=== PATIENT | male | born 1955 | race African-American/Black ===

== ENCOUNTER 2019-03-20 07:01 | Day surgery (SDC) | payer OTHER ==
[2019-03-20] VITALS (9 sets, daily range): BP systolic 124–152; BP diastolic 67–79
[~2019-03-20] VITALS: Ht 198.1 cm; Wt 131.5 kg
[2019-03-20] MEDS ORDERED: DIOVAN160 MG ORAL (07:32)
[2019-03-20] MEDS ORDERED: ATORVASTATIN CA40 MG ORAL (07:32)
[2019-03-20] MEDS ORDERED: CHLORTHALIDONE25 MG ORAL (07:32)
[2019-03-20] MEDS ORDERED: AMLODIPINE BESY10 MG ORAL (07:32)
--- NOTE | 2019-03-20 07:42 | Pre-Procedure Note/Attestation ---
Pre-Procedure Note/Attestation Complete Prior to Procedure Planned Procedure: not applicable Procedure Narrative: colonoscopy Indications for Procedure Pre-Operative Diagnosis: multiple colon polyps Attestation I attest that I discussed the nature of the procedure; its benefits; risks and complications; and alternatives (and the risks and benefits of such alternatives ), prior to the procedure, with the patient (or the patient's legal b2b outside sales representative). I attest that, if there was a reasonable possibility of needing a blood transfusion, the patient (or the patient's legal b2b outside sales representative) was given the [facility] standardized written summary, pursuant to the Isacc Chandler Blood Safety Act ([place] Health and Safety Code # 1645, as amended). I attest that I re-evaluated the patient just prior to the surgery and that there has been no change in the patient's H&P, except as documented below: Bernard Ku MD Mar 20, 2019 07:42
--- NOTE | 2019-03-20 07:43 | Short Stay Surgery H&P ---
History of Present Illness History of Present Illness Chief Complaint multiple colon polyps HPI Tim Katz is a 63 year old male who was admitted on for Multiple Polyps Patient History Allergies: Coded Allergies: PENICILLINS (Verified Allergy, Mild, 03/20/19) SKIN RASH PAST MEDICAL HISTORY: (1) HTN (hypertension) (2) Hypercholesteremia Medication History Scheduled Amlodipine Besylate* (Amlodipine Besylate*), 10 MG ORAL DAILY, (Reported) Atorvastatin Calcium* (Atorvastatin Calcium*), 40 MG ORAL BEDTIME, (Reported) Chlorthalidone* (Chlorthalidone*), 25 MG ORAL DAILY, (Reported) Valsartan (Diovan), 160 MG ORAL DAILY, (Reported) Review of Systems Cardiovascular: Reports: no symptoms Respiratory: Reports: no symptoms Skeletal: Reports: no symptoms Gastrointestinal: Reports: no symptoms Genitourinary: Reports: no symptoms Neurologic: Reports: no symptoms Endocrine: Reports: no symptoms Hematologic: Reports: no symptoms Physical Exam Vital Signs Last Vital Signs Date Time Temp Pulse Resp B/P (MAP) Pulse Ox O2 Delivery O2 Flow Rate FiO2 03/20/19 07:37 Room Air Skin: normal HENT: normal Heart: normal Lungs: normal Abdomen: normal Extremities: normal Plan Plan of Care colonoscopy Attestation Are the patient's medical conditions optimized for surgery? Attestation Response: yes Bernard Ku MD Mar 20, 2019 07:43
[2019-03-20] MEDS ORDERED: LR 1000ml 1,000 ML IVLG SCH (08:28)
--- NOTE | 2019-03-20 08:28 | Anethesia Preoperative Eval ---
Anesthesia Pre-op PMH/ROS General Date of Evaluation: Mar 20, 2019 Time of Evaluation: 08:26 Anesthesiologist: Tiesha ASA Score: ASA 2 Mallampati Score Class I : Soft palate, uvula, fauces, pillars visible Class II: Soft palate, uvula, fauces visible Class III: Soft palate, base of uvula visible Class IV: Only hard plate visible Mallampati Classification: Class II Surgeon: Kings Diagnosis: Tiesha Surgical Procedure: Colonoscopy Anesthesia History: none Family History: no anesthesia problems Allergies: Coded Allergies: PENICILLINS (Verified Allergy, Mild, 03/20/19) SKIN RASH Medications: see eMAR Patient NPO?: Yes Past Medical History Cardiovascular: Reports: HTN - mild; Denies: CAD, MT, valve dz, arrhythmia, other Pulmonary: Denies: asthma, COPD, INNA, other Gastrointestinal/Genitourinary: Reports: GERD; Denies: CRI, ESRD, other Neurologic/Psychiatric: Reports: dementia Endocrine: Denies: DM, hypothyroidism, steroids, other HEENT: Reports: cataract (L), cataract (R); Denies: glaucoma, [place] (L), [place]TON (R), other Hematology/Immune: Denies: anemia, DVT, bleeding disorder, other Musculoskeletal/Integumentary: Denies: OA, RA, DJD, DDD, edema, other PMH Narrative: as above PSxH Narrative: see H&P Anesthesia Pre-op Phys. Exam Physician Exam Last Vital Signs Date Time Temp Pulse Resp B/P (MAP) Pulse Ox O2 Delivery O2 Flow Rate FiO2 03/20/19 07:51 97.7 83 20 152/76 97 Room Air Constitutional: NAD Neurologic: CN 2-12 intact Cardiovascular: RRR, no M/R/G Respiratory: CTA Gastrointestinal: S/NT/ND Airway Exam Mallampati Score: Class II MO: full ROM: full Teeth: intact Dentures: no upper, no lower Anesthesia Pre-op A/P Risk Assessment & Plan Assessment: ASA 2 Plan: MAC Status Change Before Surgery: No Ernesto Motley MD Mar 20, 2019 08:28
[2019-03-20] MEDS ORDERED: Propofol 200mg/20ml IV ONE (08:30)
[2019-03-20] MEDS ORDERED: LR 1000ml ONE (08:30)
[2019-03-20] MEDS ORDERED: fentaNYL 100 mcg/2 mL IV ONE (08:30)
[2019-03-20] MEDS ORDERED: fentaNYL 100 mcg/2 mL IV PRN (08:30)
--- NOTE | 2019-03-20 09:22 | Endoscopy Procedure Note ---
Endoscopy Procedure Note General Indication for Procedure: screening colon Procedures Performed: colonoscopy Operative Findings/Diagnosis: diverticulosis Specimen: none Pt Tolerated Procedure Well: Yes Estimated Blood Loss: none Anesthesia Anesthesiologist: mira Anesthesia: MAC Inserted Devices Implant(s) used?: No Quality Quality of Bowel Preparation: Good Did scope reach the cecum?: Yes Was there any complications?: No GI Core Measures 50 yrs or older w/o bx or poly: No 10yrs. F/U not recommended: Yes If not recommended, why?: Above average risk 10 yrs. F/U needed: Yes 18 years or older w/prev. colo: No Bernard Ku MD Mar 20, 2019 09:22
--- NOTE | 2019-03-20 09:25 | Immediate Post-Op Evaluation ---
Immediate Post-Op Evalulation Immediate Post-Op Evalulation Procedure: Colonoscopy Date of Evaluation: Mar 20, 2019 Time of Evaluation: 09:24 IV Fluids: 600 Blood Products: none Estimated Blood Loss: none Urinary Output: none Blood Pressure Systolic: 116 Blood Pressure Diastolic: 68 Pulse Rate: 78 Respiratory Rate: 20 O2 Sat by Pulse Oximetry: 98 Temperature (Fahrenheit): 97.6 Pain Score (1-10): 1 Nausea: No Vomiting: No Complications none Patient Status: awake, patent, none Hydration Status: adequate Ernesto Motley MD Mar 20, 2019 09:25
--- NOTE | 2019-03-20 10:18 | 48 Hour Post Anesthesia Eval ---
Post Anesthesia Evaluation Procedure: Colonoscopy Date of Evaluation: Mar 20, 2019 Time of Evaluation: 10:17 Blood Pressure Systolic: 128 0: 74 Pulse Rate: 68 Respiratory Rate: 18 Temperature (Fahrenheit): 97.8 O2 Sat by Pulse Oximetry: 98 Airway: patent Nausea: No Vomiting: No Pain Intensity: 1 Hydration Status: adequate Cardiopulmonary Status: stable Mental Status/LOC: patient returned to baseline Follow-up Care/Observations: n/a Post-Anesthesia Complications: none Follow-up care needed: ready to discharge Ernesto Motley MD Mar 20, 2019 10:18
--- NOTE | 2019-03-20 16:00 | Procedure Note ---
DATE OF PROCEDURE: 03/20/2019 SURGEON: Bernard Ku M.D. PROCEDURE: Colonoscopy. ANESTHESIA: Per Dr. Motley. INSTRUMENT: Olympus adult flexible colonoscope. INDICATION: Screening colonoscopy and history of chronic polyp. REASON FOR PROCEDURE: The procedure, risks, benefits, and possible consequences, including hemorrhage, aspiration, perforation and infection, and alternative treatments, were explained to the patient/legal guardian by Dr. Bernard Ku and the patient/legal guardian understood and accepted these risks. PROCEDURE IN DETAIL: After informed consent was obtained and the patient was adequately sedated. First rectal exam was performed, which was normal. Then, the scope was advanced from rectum into the cecum documented by appendiceal orifice, ileocecal valve, and right upper quadrant palpation. Quality of prep was good. The patient has evidence of diverticulosis in the left colon, moderate. No obvious polyp was seen in this colonoscopy examination. Retroflexion of rectum showed evidence of medium-sized nonbleeding internal hemorrhoid. SUMMARY OF FINDINGS: 1. Diverticulosis. 2. Internal hemorrhoids. RECOMMENDATIONS: 1. The patient would need repeat a colonoscopy in five years. 2. Treat for hemorrhoids if become symptomatic. I want to thank Dr. Florez for this kind referral. Bernard Ku M.D. DR: REBECCA JOB#: [id number] CC: Ariel Florez M.D.
--- NOTE | 2019-03-21 16:03 | Cardiology Report ---
APPROVED REPORT EKG Measurement Heart [id number] Normal sinus rhythm Right bundle branch block Abnormal ECG
== END 2019-03-20 10:30 | disposition home or self-care (01) ==
LOC: GAS 07:01
DX: Z12.11 Encounter for screening for malignant neoplasm of colon (principal); K57.90 Diverticulosis of intestine, part unspecified, without perforation or abscess without bleeding; K64.8 Other hemorrhoids; I10 Essential (primary) hypertension; E78.00 Pure hypercholesterolemia, unspecified; K21.9 Gastro-esophageal reflux disease without esophagitis; F03.90 Unspecified dementia, unspecified severity, without behavioral disturbance, psychotic disturbance, mood disturbance, and anxiety; Z86.010 Personal history of colon polyps; Z79.899 Other long term (current) drug therapy; Z88.0 Allergy status to penicillin
CPT/HCPCS: 45378; 93005; J2704; J3010; 94003; 94150